=== PATIENT | female | born 1975 | race Caucasian/White ===

== ENCOUNTER 2018-08-03 21:17 | Observation (INO) | payer OTHER ==
[2018-08-03] MEDS ORDERED: 0.9 % SODIUM CHLORIDE 1,000 ML IV ONE (21:29)
--- NOTE | 2018-08-03 21:37 | ED Physician Documentation ---
General Adult - HISTORIAN Historian: patient - HPI Stated Complaint: dizziness, feels funny, chest heaviness Chief Complaint: Dizziness Onset: hours (2) Timing: still present Severity: mild Further Comments: yes (She states one hour or more ago she was laying on the couch and she was watching a movie when she started to feel dizzy and like she was maybe going to pass out. She states she has dry mouth and she feels "out of it" she has no chest pain but chest pressure but not just chest but all over pressure and muscle pain. Denies any fever) Last known Well Code/Unknown Code: Unknown - ROS CONST: no problems - PAST HX Past History: none Immunizations: UTD Allergies/Adverse Reactions: Allergies Allergy/AdvReac Type Severity Reaction Status Date / Time lisinopril Allergy Verified 08/03/18 22:15 Sulfa (Sulfonamide Allergy Verified 08/03/18 22:15 Antibiotics) Home Medications: Ambulatory Orders Medication Instructions Recorded NK 08/03/18 - SOCIAL HX Smoking History: non-smoker Alcohol Use: none Drug Use: none - FAMILY HX Family History: No - REVIEWED ASSESSMENTS Nursing Assessment Reviewed: Yes Vitals Reviewed: Yes Progress - Progress Progress: 2200: her heart rate increased and she was very emotional. This lasted a little over 2 min. DG 2215: Discovered on history she had been on metoprolol for the SVT and meds for HTN. She did not remember that was here at this hospital but is not sure why she stopped taking it other than she was doing ok. DG 2320: will admit obs to monitor her heart rate she is agreeable although she says she does not have a local PCP at this time DG ED Results Lab/Radiology - Orders Orders: ED Orders Category Date Time Status Place IV Lock 1T Care 08/03/18 21:27 Ordered CBC/PLATELET/DIFF Routine Lab 08/03/18 Ordered CMP Routine Lab 08/03/18 Ordered D DIMER Stat Lab 08/03/18 Ordered SERUM HCG Routine Lab 08/03/18 Ordered TROPONIN I (cTnI) Stat Lab 08/03/18 Ordered URINALYSIS Routine Lab 08/03/18 Ordered 0.9 % Sodium Chloride [Normal Saline] 1,000 ml Med 08/03/18 21:29 Ordered IV NOW EKG WITH COMPARISON Stat Ther 08/03/18 Ordered General Adult Physical Exam - PHYSICAL EXAM GENERAL APPEARANCE: mild distress EENT: eye inspection normal, ENT inspection normal, pharynx normal, no signs of dehydration, GABRIEL, TM's nml NECK: normal inspection RESPIRATORY: no resp distress, chest non-tender, breath sounds normal CVS: reg rate & rhythm, heart sounds normal ABDOMEN: soft, normal bowel sounds, no distension, non-tender BACK: normal inspection SKIN: warm/dry EXTREMITIES: non-tender NEURO: oriented X3 Discharge Clincal Impression: SVT (supraventricular tachycardia) Condition: Stable Disposition: 09 ADMITTED INPATIENT Decision to Admit: [id number] Date of Decison to Admit: 08/03/18 Decision Time: 23:23
[2018-08-03 22:07] LABS: BASOPHILS % 0.6 (0.0-1.5); EOSINOPHILS % 1.7 % (0.0-6.8); MEAN CORPUSCULAR HEMOGLOBIN 28.4 pg (28.0-34.0); NEUTROPHILS # 5.4 # k/uL (1.4-7.7)
[2018-08-03 22:20] LABS: eGFR (Non-African) > 60
[2018-08-03] MEDS ORDERED: 0.9 % SODIUM CHLORIDE 1,000 ML IV SCH (23:30)
[2018-08-04 00:04] VITALS: BMI 36.4
--- NOTE | 2018-08-04 06:52 | History and Physical Report ---
History of Present Illnes - History of Present Illness Reason for Visit: dizzy History of Present Illness: she felt dizzy and was found to have some episodes of svt on monitor DG - Past Medical History Cardiac: HTN (she stopped meds years ago ), Other (svt ) Psych: Anxiety (she was medicated not now ) - Past Surgical History Past Surgical History: None - Past Social History Smoke: No Alcohol: None Lives: With Family - Health Maintenance Health Maintenance: Cholesterol Pneumonia Vaccine: No Resuscitation Status: Resusciation Status Resuscitation Status Full Code - Unable to Obtain History Unable to Obtain: No Review of Systems - Review of Systems Constitutional: Weakness Eyes: negative: pain ENT: negative: Ear Pain, Ear Discharge Respiratory: negative: Cough Cardiovascular: Light Headedness. negative: Chest Pain, Palpitations Gastrointestinal: negative: Nausea Genitourinary: negative: Dysuria Musculoskeletal: negative: Neck Pain Skin: negative: Rash Neurological: negative: Weakness - Medications/Allergies Allergies/Adverse Reactions: Allergies Allergy/AdvReac Type Severity Reaction Status Date / Time lisinopril Allergy Verified 08/03/18 22:15 Sulfa (Sulfonamide Allergy Verified 08/03/18 22:15 Antibiotics) Home Medications: Home Medications NK 08/03/18 Current Inpatient Medications: Current Inpatient Medications Sodium Chloride (Normal Saline) 1,000 mls @ 100 mls/hr IV Q10H [facility] Last Admin: 08/03/18 23:50 Dose: 100 mls/hr Metoprolol Tartrate (Lopressor) 25 mg PO DAILY [facility] Exam - Exam Vital Signs: Vital Signs (72 hours) 08/03/18 08/03/18 08/03/18 21:25 23:19 23:30 Temperature 98.2 F 97.9 F 97.9 F Pulse Rate Pulse Rate [ 104 H 115 H 83 Pulse ox] Respiratory 30 H 18 18 Rate Blood Pressure 155/84 132/82 [Left Arm] Blood Pressure 172/104 [Right Arm] O2 Sat by Pulse 99 100 100 Oximetry 08/03/18 08/04/18 08/04/18 23:58 01:41 02:00 Temperature 97.9 F 98.1 F Pulse Rate Pulse Rate [ 115 H 94 H Pulse ox] Respiratory 18 16 16 Rate Blood Pressure 155/84 136/73 [Left Arm] Blood Pressure [Right Arm] O2 Sat by Pulse 100 98 Oximetry 08/04/18 08/04/18 06:00 06:32 Temperature 98.2 F Pulse Rate 81 Pulse Rate [ 83 Pulse ox] Respiratory 16 Rate Blood Pressure 134/81 [Left Arm] Blood Pressure [Right Arm] O2 Sat by Pulse 97 Oximetry General: Alert, Oriented to Person, Oriented to Place, Oriented to Time, Cooperative HEENT: Atraumatic, PERRLA Neck: Normal Range of Motion Lungs: Clear to auscultation, Normal air movement Cardiovascular: Regular rate Abdomen: Normal bowel sounds Integumentary: Normal, [place], Warm, Dry Extremities: No clubbing Neurological: Normal gait Psych/Mental Status: Mental status NL - Laboratory Results Laboratory Results: Laboratory Results 08/03/18 08/03/18 08/03/18 21:40 21:40 21:40 WBC 9.30 RBC 4.06 Hgb 11.5 L Hct 35.1 MCV 87.0 MCH 28.4 MCHC 32.8 RDW 14.1 Plt Count 269 Neut % (Auto) 58.5 Lymph % (Auto) 33.2 Creek % (Auto) 6.0 Eos % (Auto) 1.7 Baso % (Auto) 0.6 Neut # (Auto) 5.4 Lymph # (Auto) 3.1 Creek # (Auto) 0.6 Eos # (Auto) 0.2 Baso # (Auto) 0.1 D-Dimer Sodium 140 Potassium 3.8 Chloride 103 Carbon Dioxide 25 BUN 14 Creatinine 0.60 Estimated Creat Clear 212 Est GFR ( Amer) > 60 Est GFR (Non-Af Amer) > 60 Glucose 120 H Calcium 9.1 Total Bilirubin < 0.1 L AST 16 ALT 22 Alkaline Phosphatase 65 Troponin I Total Protein 6.2 L Albumin 3.6 Serum HCG, Qual Negative 08/03/18 21:40 WBC RBC Hgb Hct MCV MCH MCHC RDW Plt Count Neut % (Auto) Lymph % (Auto) Creek % (Auto) Eos % (Auto) Baso % (Auto) Neut # (Auto) Lymph # (Auto) Creek # (Auto) Eos # (Auto) Baso # (Auto) D-Dimer 248 Sodium Potassium Chloride Carbon Dioxide BUN Creatinine Estimated Creat Clear Est GFR ( Amer) Est GFR (Non-Af Amer) Glucose Calcium Total Bilirubin AST ALT Alkaline Phosphatase Troponin I < 0.03 L Total Protein Albumin Serum HCG, Qual VTE Assessment - RISK FACTOR SCORE VTE RISK FACTOR SCORES: AGE 40-60 YEARS
--- NOTE | 2018-08-04 06:55 | Discharge Summary ---
Discharge Summary - Discharge Sumary Date: 08/04/18 History of Present Illness: dizziness SVT Condition at Discharge: Stable Home Medications: Ambulatory Orders Medication Instructions Recorded NK 08/03/18 Consultations this Visit: None Procedures this Visit: None Allergies/Adverse Reactions: Allergies Allergy/AdvReac Type Severity Reaction Status Date / Time lisinopril Allergy Verified 08/03/18 22:15 Sulfa (Sulfonamide Allergy Verified 08/03/18 22:15 Antibiotics) Patient Problems: Current Active Problems Problem Status Onset SVT (supraventricular tachycardia) Acute Discharge Summary: she is discharged with rx to re start metoprolol - she will call PCP Hospital Course: she will be discharged no SVT noted during night
[2018-08-04] MEDS ORDERED: METOPROLOL TARTRATE 25 MG TABLET PO SCH (09:00)
[2018-08-04 09:31] VITALS: BP 138/86
== END 2018-08-04 12:25 | disposition home or self-care (01) ==
LOC: ED 21:17 → SOUTH 23:16
PROVIDERS: ADMIT Nurse Practitioner Family; ATTEND Nurse Practitioner Family
DX: I47.1 Supraventricular tachycardia (principal); I10 Essential (primary) hypertension; F41.9 Anxiety disorder, unspecified; R53.1 Weakness; R42 Dizziness and giddiness; Z32.02 Encounter for pregnancy test, result negative
CPT/HCPCS: 80053; 84484; 84703; 85025; 85379; 93005; 96365; 99284; 99285; G0378; J7030; 99217; 99218; S1016